=== PATIENT | male | born 1985 | race Caucasian/White ===

== ENCOUNTER 2016-11-25 07:11 | Emergency (ER) | payer BC, OTHER ==
[2016-11-25] MEDS ORDERED: Lidocaine 2% with EPINEPHrine 1:100,000 20 ML MDV INJECT ONE (07:35)
[2016-11-25 07:36] VITALS: BP 155/109
--- NOTE | 2016-11-25 07:38 | EDM.PDOC ---
ED HPI GENERAL MEDICAL PROBLEM - General Chief Complaint: General Stated Complaint: BUMP ON HEAD GROWING AND HURTING Time Seen by Provider: 11/25/16 07:33 Source of Information: Reports: Patient, RN, RN notes reviewed History Limitations: Reports: No limitations - History of Present Illness INITIAL COMMENTS - FREE TEXT/NARRATIVE: Patient presents to the ED at [facility] with a cyst on the top of his head. Patient states the cyst has been presents for the past 4-5 years, but over the past 24 hours it has progressively gotten worse. Onset Date: 11/24/16 Duration: Chronic, Getting worse Location: Reports: head Quality: Reports: Pressure Frontal Head Pain Score (Numeric/FACES): 5 - Related Data Allergies Allergy/AdvReac Type Severity Reaction Status Date / Time No Known Allergies Allergy Verified 11/25/16 07:27 Home Meds: Home Meds Cephalexin 500 mg PO BID #18 capsule 11/25/16 [Rx] ED ROS GENERAL - Review of Systems Review Of Systems: See Below Constitutional: Denies: fever, chills, weakness Respiratory: Denies: Shortness of Breath, Cough Cardiovascular: Denies: Chest pain, Palpitations Skin: Reports: lumps Neurological: Denies: Dizziness, Headache, Numbness, Paresthesia, Tingling ED EXAM, GENERAL - Physical Exam Exam: See Below Exam Limited By: No limitations General Appearance: alert, no apparent distress Head: atraumatic, normocephalic Respiratory/Chest: no respiratory distress, lungs clear, normal breath sounds Cardiovascular: regular rate, rhythm Neurological: alert, oriented Skin Exam: Warm, Normal color, No rash, Wound/incision (skin abscess, top of head) ED I&D PROCEDURES - I&D Site: Top of head Skin prep: providone-iodine (betadine) Local anesthesia - Lidocaine (Xylocaine): 1% with epi Local anesthetic volume: 4cc Area incised with: 11 blade Drainage: purulent, large amount Probed to break up loculations: No Packed with: none Sterile dressing: adhesive dressing Complications: No Course - Vital Signs Last Recorded V/S: Last Vital Signs Temp 36.1 C 11/25/16 07:15 Pulse 104 H 11/25/16 07:15 Resp 20 11/25/16 07:15 BP 155/109 H 11/25/16 07:15 Pulse Ox 99 11/25/16 07:15 - Orders/Labs/Meds Meds: Medications Discontinued Medications Generic Name Dose Route Start Last Admin Trade Name Umer PRN Reason Stop Dose Admin Lidocaine/Epinephrine 20 ml 11/25/16 07:35 Xylocaine 2% With Epinephrine 1:100,000 INJECT 11/25/16 07:36 ONETIME ONE Departure - Departure Time of Disposition: 08:21 Disposition: Home, Self-Care 01 Condition: good Clinical Impression: Abscess of skin Qualifiers: Site of cutaneous abscess: head Qualified Code(s): L02.811 - Cutaneous abscess of head [any part, except face] Prescriptions: Cephalexin 500 mg PO BID #18 capsule Instructions: Incision and Drainage, Abscess, [id number] Referrals: PCP,None [Primary Care Provider] - Forms: ED Department Discharge Additional Instructions: 1. Keep band aid on for at least 24 hours, longer is better 2. May alternate Tylenol/Advil as needed 3. Wash area daily, do not scrub 4. Take antibiotics for the full coarse, do not stop until all gone 5. See your Primary as symptoms warrant - Problem List Review Problem List Initiated/Reviewed/Updated: Yes
[2016-11-25] MEDS ORDERED: Take Home: Cephalexin 250 MG Cap, 4 Cap Pack PO ONE (08:23)
== END 2016-11-25 08:30 | disposition home or self-care (01) ==
LOC: VM.ED 07:11
DX: L02.811 Cutaneous abscess of head [any part, except face] (principal)
CPT/HCPCS: 10060; 87070; 87077; 99283; A9270; 87147; 87186

== ENCOUNTER 2023-02-21 22:33 | Emergency (ER) | payer BC, MEDICAID, OTHER ==
[2023-02-21] MEDS ORDERED: HYDROmorphone 1 MG/ML Syringe IVPUSH ONE (22:59)
[2023-02-21] MEDS ORDERED: Sodium Chloride 0.9% 1,000 ML IV ONE (22:59)
[2023-02-21 23:08] LABS: BASOPHILS PERCENT AUTO 0.2 % (0.2-1.2); EOSINOPHILS ABSOLUTE AUTO 0.1 x10^3/uL (0.0-0.5); EOSINOPHILS PERCENT AUTO 0.8 % (0.0-4.0); HEMATOCRIT 44.4 % (40.0-52.0); HEMOGLOBIN 16.8 g/dL (14.0-18.0); IMMATURE GRAN ABSOLUTE AUTO 0.02 x10^3/uL (0.00-0.07); LYMPHOCYTES ABSOLUTE AUTO 3.3 x10^3/uL (1.0-4.8); LYMPHOCYTES PERCENT AUTO 25.8 % (25.0-50.0); MEAN CORPUSCULAR HEMOGLOBIN 32.4 pg (26.0-32.0); MEAN CORPUSCULAR VOLUME 85.7 fL (78.0-93.0); MONOCYTES ABSOLUTE AUTO 0.9 x10^3/uL (0.0-0.8); MONOCYTES PERCENT AUTO 6.9 % (2.0-11.0); NEUTROPHILS ABSOLUTE AUTO 8.4 x10^3/uL (1.8-7.7); NEUTROPHILS PERCENT AUTO 66.1 % (50.0-80.0); PLATELET COUNT,PLT 288 x10^3/uL (130-400); RED BLOOD CELL COUNT 5.18 x10^6/uL (4.5-6.0); WHITE BLOOD CELL COUNT,WBC 12.6 x10^3/uL (4.0-10.0)
[2023-02-21 23:14] LABS: MEAN CORPUSCULAR HGB CONC 37.8 g/dL (32.0-36.0)
[2023-02-21 23:18] LABS: ALANINE AMINOTRANSFERASE,ALT 34 U/L (16-63); ALBUMIN 4.3 g/dL (3.4-5.0); ALKALINE PHOSPHATASE 106 U/L (46-116); AMYLASE 29 U/L (25-115); ASPARTATE AMNIOTRANSFERASE,AST 19 U/L (15-37); BILIRUBIN TOTAL 1.1 mg/dL (0.2-1.0); BLOOD UREA NITROGEN,BUN 17 mg/dL (7-18); C-REACTIVE PROTEIN 0.58 mg/dL (<=0.30); CALCIUM 9.4 mg/dL (8.5-10.1); CARBON DIOXIDE,CO2 23 mmol/L (21-32); CHLORIDE,CL 103 mmol/L (98-107); CREATININE 1.5 mg/dL (0.70-1.30); GLUCOSE RANDOM 114 mg/dL (70-99); LIPASE 27 U/L (19-71); POTASSIUM,K 3.2 mmol/L (3.5-5.1); PROTEIN TOTAL,TP 7.6 g/dL (6.4-8.2); SODIUM,NA 141 mmol/L (136-145)
[2023-02-21 23:19] LABS: ANION GAP 18.2 mmol/L (5-15); ESTIMATED GFR 60 mL/min (>=60)
[2023-02-21] MEDS ORDERED: Ketorolac 30 MG/ML SDV IVPUSH ONE (23:46)
[2023-02-22] MEDS ORDERED: Tamsulosin 0.4 MG Cap.ER PO ONE (00:15)
[2023-02-22] MEDS ORDERED: Take Home: Acetaminophen/oxyCODONE 325-5 MG, 5 Tab Pack PO ONE (00:16)
[2023-02-22 01:27] VITALS: BP 124/59; PULSE 62
[2023-02-22 07:06] LABS: AMPHETAMINE, URINE NEGATIVE (NEGATIVE); BARBITUATES,URINE NEGATIVE (NEGATIVE); BENZODIAZEPINES,URINE NEGATIVE (NEGATIVE); BUPRENORPHINE,URINE NEGATIVE (NEGATIVE); COCAINE,URINE NEGATIVE (NEGATIVE); MARIJUANA,URINE NEGATIVE (NEGATIVE); METHADONE,URINE NEGATIVE (NEGATIVE); METHAMPHETAMINE,URINE POSITIVE (NEGATIVE); METHYLENEDIOXYMETHAMP,UR NEGATIVE (NEGATIVE); OPIATES,URINE NEGATIVE (NEGATIVE); OXYCODONE,URINE NEGATIVE (NEGATIVE); PHENCYCLIDINE,URINE NEGATIVE
[2023-02-22 07:11] LABS: APPEARANCE,URINE SLIGHTLY CLOUDY (CLEAR); COLOR,URINE POC YELLOW (YELLOW); PH,URINE >8.0 (5.0-8.0)
[2023-02-22 07:12] LABS: BILIRUBIN,URINE POC SMALL (NEGATIVE); GLUCOSE,URINE POC NEGATIVE (NEGATIVE); KETONES,URINE POC 40 (NEGATIVE); LEUKOCYTE ESTERASE,URINE POC NEGATIVE (NEGATIVE); NITRITE,URINE POC NEGATIVE (NEGATIVE); OCCULT BLOOD,URINE POC MODERATE (NEGATIVE); PROTEIN,URINE POC 30 (NEGATIVE); UROBILINOGEN,URINE POC 0.2 (0.2)
[2023-02-22 07:29] LABS: AMORPHOUS SEDIMENT,URINE MANY (NOT SEEN); BACTERIA,URINE POC NOT SEEN (NOT SEEN); HYALINE CASTS,URINE POC FEW (NOT SEEN); MUCUS,URINE POC RARE (NOT SEEN); SQUAMOUS EPITHELIAL CELLS,UR P FEW /HPF (NOT SEEN); WBC,URINE POC 0-5 /HPF (NOT SEEN)
== END 2023-02-22 00:40 | disposition home or self-care (01) ==
LOC: EEVIPCON 22:33 → VM.ED 22:33
DX: N13.2 Hydronephrosis with renal and ureteral calculous obstruction (principal); I10 Essential (primary) hypertension; Z72.0 Tobacco use; Z79.899 Other long term (current) drug therapy
CPT/HCPCS: 74176; 80053; 80305-QW; 81001; 81002; 81015; 82150; 83690; 85025; 86140; 96361; 96374; 96375; 99284; 99284-25; A9270-GY; J1170; J1885; J7030

== ENCOUNTER 2024-10-20 11:00 | Emergency (ER) | payer MEDICAID ==
[2024-10-20 11:54] VITALS: BP 151/98; PULSE 104
== END 2024-10-20 11:51 | disposition left against medical advice (07) ==
LOC: VM.ED 11:00
DX: M25.471 Effusion, right ankle (principal); I10 Essential (primary) hypertension
CPT/HCPCS: 99283

== ENCOUNTER 2025-04-01 16:47 | Emergency (ER) | payer MEDICAID ==
[2025-04-01 17:02] LABS: GLUCOSE,URINE NEGATIVE (NEGATIVE); OCCULT BLOOD,URINE LARGE (NEGATIVE)
[2025-04-01 17:05] LABS: BASOPHILS ABSOLUTE AUTO 0.0 x10^3/uL (0.0-0.2); BASOPHILS PERCENT AUTO 0.1 % (0.2-1.2); EOSINOPHILS ABSOLUTE AUTO 0.2 x10^3/uL (0.0-0.5); EOSINOPHILS PERCENT AUTO 1.9 % (0.0-4.0); IMMATURE GRAN ABSOLUTE AUTO 0.01 x10^3/uL (0.00-0.07); IMMATURE GRAN PERCENT AUTO 0.10 % (0.00-0.43); LYMPHOCYTES ABSOLUTE AUTO 3.4 x10^3/uL (1.0-4.8); LYMPHOCYTES PERCENT AUTO 32.4 % (25.0-50.0); MONOCYTES ABSOLUTE AUTO 1.0 x10^3/uL (0.0-0.8); MONOCYTES PERCENT AUTO 9.1 % (2.0-11.0); NEUTROPHILS ABSOLUTE AUTO 5.9 x10^3/uL (1.8-7.7); NEUTROPHILS PERCENT AUTO 56.4 % (50.0-80.0); PLATELET COUNT,PLT 291 x10^3/uL (130-400); RED BLOOD CELL COUNT 5.43 x10^6/uL (4.5-6.0); WHITE BLOOD CELL COUNT,WBC 10.4 x10^3/uL (4.0-10.0)
[2025-04-01] MEDS ORDERED: Sodium Chloride 0.9% 10 ML Syringe FLUSH PRN (17:07)
[2025-04-01 17:16] LABS: APPEARANCE,URINE SLIGHTLY CLOUDY (CLEAR)
[2025-04-01] MEDS: Ondansetron 4 MG/2 ML SDV IVPUSH ONE (17:22)
[2025-04-01] MEDS: fentaNYL 100 MCG/2 ML SDV IVPUSH ONE (17:22)
[2025-04-01] MEDS: Ketorolac 30 MG/ML SDV IVPUSH ONE (17:23)
[2025-04-01] MEDS: Lactated Ringers 1,000 ML IV ONE ×2 (17:24→18:06)
[2025-04-01 17:27] LABS: A/G RATIO 1.29; ALANINE AMINOTRANSFERASE,ALT 63.0 U/L (16-63); ASPARTATE AMNIOTRANSFERASE,AST 42.0 U/L (15-37); BILIRUBIN TOTAL 1.0 mg/dL (0.2-1.0); BLOOD UREA NITROGEN,BUN 17.0 mg/dL (7-18); CARBON DIOXIDE,CO2 29.0 mmol/L (21-32); CHLORIDE,CL 100.0 mmol/L (98-107); CREATININE 1.3 mg/dL (0.70-1.30); EST CRCL DRUG DOSING (CG) 77.21 mL/min; GLUCOSE RANDOM 118.0 mg/dL (70-99); POTASSIUM,K 3.4 mmol/L (3.5-5.1); PROTEIN TOTAL,TP 7.8 g/dL (6.4-8.2); SODIUM,NA 141.0 mmol/L (136-145)
[2025-04-01 17:28] LABS: ESTIMATED GFR 71.0 mL/min (>=60)
[2025-04-01] MEDS: Take Home: Acetaminophen/oxyCODONE 325-5 MG, 5 Tab Pack PO ONE (19:21)
[2025-04-01] MEDS: Potassium Chloride 20 MEQ Tab.ER PO ONE (19:21)
[2025-04-01 19:45] VITALS: BP 142/76; PULSE 88
== END 2025-04-01 19:28 | disposition home or self-care (01) ==
LOC: VM.ED 16:47
DX: N13.2 Hydronephrosis with renal and ureteral calculous obstruction (principal); I10 Essential (primary) hypertension
CPT/HCPCS: 74176; 80053; 81001; 85025; 96361; 96374; 96375; 99284; A9270; J1885; J2405; J3010; J7120

== ENCOUNTER 2025-05-23 12:46 | Emergency (ER) | payer MEDICAID ==
[2025-05-23 13:11] VITALS: BP 144/68; PULSE 115
[2025-05-23 13:25] LABS: BASOPHILS ABSOLUTE AUTO 0.0 x10^3/uL (0.0-0.2); BASOPHILS PERCENT AUTO 0.1 % (0.2-1.2); EOSINOPHILS ABSOLUTE AUTO 0.4 x10^3/uL (0.0-0.5); EOSINOPHILS PERCENT AUTO 3.9 % (0.0-4.0); IMMATURE GRAN ABSOLUTE AUTO 0.01 x10^3/uL (0.00-0.07); IMMATURE GRAN PERCENT AUTO 0.10 % (0.00-0.43); LYMPHOCYTES ABSOLUTE AUTO 1.8 x10^3/uL (1.0-4.8); LYMPHOCYTES PERCENT AUTO 19.4 % (25.0-50.0); MONOCYTES ABSOLUTE AUTO 0.8 x10^3/uL (0.0-0.8); MONOCYTES PERCENT AUTO 8.2 % (2.0-11.0); NEUTROPHILS ABSOLUTE AUTO 6.2 x10^3/uL (1.8-7.7); NEUTROPHILS PERCENT AUTO 68.3 % (50.0-80.0); PLATELET COUNT,PLT 195 x10^3/uL (130-400); RED BLOOD CELL COUNT 4.52 x10^6/uL (4.5-6.0); WHITE BLOOD CELL COUNT,WBC 9.1 x10^3/uL (4.0-10.0)
[2025-05-23] MEDS: Take Home: Albuterol 18 GM Inhaler, 1 Inhaler Pack INH PRN (13:57)
== END 2025-05-23 14:08 | disposition home or self-care (01) ==
LOC: VM.ED 12:46
DX: J06.9 Acute upper respiratory infection, unspecified (principal); B97.89 Other viral agents as the cause of diseases classified elsewhere; I10 Essential (primary) hypertension
CPT/HCPCS: 36415; 85025; 87428-QW; 87651; 99283; A9270-GY